=== PATIENT | female | born 2000 | race Two or more races ===

== ENCOUNTER 2024-06-15 13:33 | Emergency (ER) | payer MEDICAID, OTHER ==
[2024-06-15] MEDS ORDERED: Ondansetron ODT 4 MG TAB ONE (14:50)
[2024-06-15] MEDS ORDERED: Ibuprofen 800 MG TAB ONE (14:50)
[2024-06-15 15:06] LABS: BHCG - Serum Negative (NEGATIVE); Hematocrit 41.5 % (36.0-47.0); Hemoglobin 13.8 g/dL (12.0-16.0); Mean Corpuscular HGB CONC 33.3 g/dL (32.0-36.0); Mean Corpuscular Hemoglobin 28.6 pg (27.0-31.0); Mean Corpuscular Volume 85.9 fl (78.0-98.0); Platelet Count 211 10x3/uL (130-400); Pregs Control Background? CLEAR/WHITE (CLR/WHITE); Pregs Control Bar Appear? YES (CONTROL BAR); Red Blood Cell (RBC) Count 4.84 mill/uL (4.20-5.40); White Blood Cell (WBC) Count 12.2 10x3/uL (4.8-10.8)
[2024-06-15 15:14] LABS: ALT (SGPT) 9 U/L (8-55); AST (SGOT) 18 U/L (5-34); Albumin 4.4 g/dL (3.5-5.0); Alkaline Phosphatase 51 U/L (40-110); Anion Gap 20 mmol/L (10-20); BUN (Urea Nitrogen) 10 mg/dL (7.0-18.7); Bilirubin, Total 0.6 mg/dL (0.2-1.2); Calc. Creatinine Clearance 0 mL/min (70-130); Calcium 9.1 mg/dL (7.8-10.44); Carbon Dioxide 17 mmol/L (22-29); Chloride 102 mmol/L (98-107); Estimated GFR 89; Globulin 3.7 g/dL (2.4-3.5); Glucose 89 mg/dL (70-105); Lipase 13 U/L (8-78); Potassium 3.6 mmol/L (3.5-5.1); Protein, Total 8.1 g/dL (6.0-8.3); Sodium 135 mmol/L (136-145)
[2024-06-15 15:25] LABS: Bilirubin Small (Negative); Blood, Urine Trace (Negative); Clarity Hazy (Clear); Glucose, Urine (Dipstick) Negative (Negative); Ketone, Urine > or equal to 80 mg/dL (Negative); Leukocyte Negative (Negative); Nitrite Negative (Negative); Protein, Urine (Dipstick) 100 mg/dL (Neg-Trace); Specific Gravity, Urine 1.025 (1.005-1.030); Urobilinogen 0.2 mg/dL (Less than 2)
[2024-06-15 15:35] LABS: Bacteria/HPF Rare-Few HPF (None Seen); CAUTI Indications for Culture Fever or rigors; RBC/HPF 0-3 HPF (0-3)
[2024-06-15 15:36] LABS: Urine Culture Reflex No No
[2024-06-15 15:40] LABS: MDiff Complete? YES; Manual Diff?? YES; Neutrophil 80 % (42-75)
[2024-06-15 15:41] LABS: Band 7 % (5-11); Eosinophils 1 % (0-10); Lymphocytes 4 % (21-51); Monocytes 4 % (0-10); Platelet Adequacy Comment Appears Adequate; RBC Morph Comment Within Normal Limits; Reactive Lymphocytes 4 % (0-10)
== END 2024-06-15 16:00 | disposition home or self-care (01) ==
LOC: MADERS 13:33
DX: B34.9 Viral infection, unspecified (principal); K59.00 Constipation, unspecified; Z55.6 Problems related to health literacy
CPT/HCPCS: 36415; 80053; 81001; 83690; 84703; 85025; 99284; Q0162